=== PATIENT | female | born 1975 | race Caucasian/White ===

== ENCOUNTER 2017-06-19 17:00 | Emergency (ER) | payer OTHER ==
[2017-06-19 17:07] VITALS: BP 131/80; PULSE 66; RESP 17; TEMP 98.4; O2SAT 99
[2017-06-19] MEDS ORDERED: IBUPROFEN 600 MG TAB PO ONE (17:12)
--- NOTE | 2017-06-19 17:14 | EDPHY ---
H & P Stated Complaint: playing with son on trampoline inj r forearm HPI/ROS: CHIEF COMPLAINT: Right forearm pain, blunt trauma HISTORY OF PRESENT ILLNESS: Patient was playing with her son just prior to when she struck her right forearm on his [place]. She noted a sudden onset of pain over the mid shaft of the forearm. This is on the ulnar side. It radiates into the upper arm and arm pit. No numbness. Some tingling of the right small finger. No wrist drop. Significant pain to palpation. No lacerations or abrasions. No contusions. No trauma elsewhere. Worse with palpation and movement. Minimal improvement rest. No other associated complaints or modifying factors. PRIOR ORTHO INJURIES: None ESTABLISHED ORTHOPEDIST: None REVIEW OF SYSTEMS: Ten systems reviewed and are negative unless otherwise noted in the HPI EXAMINATION General Appearance: Alert, no distress Cardiovascular: Pulses normal throughout. Symmetric radial pulses 2+. Brisk cap refill Neurological: A&O, sensory symmetric, strength symmetric. No wrist drop. Good strength of the interossei. Skin: Warm and dry, no rash. No lacerations abrasions or contusions. Extremities: Tender palpation of the right forearm over the ulnar aspect midshaft. No deformity. No tenderness of the right hand, wrist or elbow. No tenderness of the right shoulder. Neurovascular intact distal to the injury Psychiatric: Mood and affect normal DIFFERENTIAL DIAGNOSES: Including but not limited to hematoma, fracture, sprain, contusion MDM: 5:10 p.m. Right forearm pain after blunt trauma. Neurovascular intact distally. No obvious deformity. No pain in the ipsilateral shoulder, wrist or elbow. X-ray of the forearm has been ordered. 5:25 p.m. X-ray does not reveal any acute findings as read by me. She does report some paresthesia but there is no numbness of the fingers. There is 2 point sensation intact in the ulnar distribution. The radial distribution intact with good strength and no wrist drop. Median distribution is also intact. Discharged home with symptomatic medications, elevation and ice instructions. Return here for any true anesthesia, wrist drop, difficulty moving the fingers. She is comfortable with this plan and discharged home in stable condition. ED Precautions: Worsening pain. Erythema, edema, cyanosis, pallor, paresthesia or anesthesia. SUPERVISION: This patient was independently evaluated without direct examination by the attending physician. Case was discussed with attending physician. Source: Patient Exam Limitations: No limitations - Personal History LMP (Females 10-55): IUD In Place Current Tetanus/Diphtheria Vaccine: Yes Tetanus Vaccine Date: 01/2011 - Medical/Surgical History Hx Asthma: No Hx Chronic Respiratory Disease: No Hx Diabetes: No Hx Cardiac Disease: No Hx Renal Disease: Yes Hx Cirrhosis: No Hx Alcoholism: No Hx HIV/AIDS: No Hx Splenectomy or Spleen Trauma: No Other PMH: hx: kidney stones, hypothyroidism, - Social History Smoking Status: Never smoked Constitutional: Initial Vital Signs Temperature (C) 98.4 F 06/19/17 17:04 Heart Rate 66 06/19/17 17:04 Respiratory Rate 17 06/19/17 17:04 Blood Pressure 131/80 H 06/19/17 17:04 O2 Sat (%) 99 06/19/17 17:04 O2 Delivery Mode Room Air Allergies/Adverse Reactions: gluten [Gluten] Allergy (Verified 06/19/17 17:03) Penicillins Allergy (Verified 06/19/17 17:03) Home Medications: Medication Instructions Recorded NK [No Known Home Meds] 06/19/17 Medical Decision Making - Data Points Medications Given: Discontinued Medications Ibuprofen (Motrin) 600 mg PO EDNOW ONE Stop: 06/19/17 17:13 Last Admin: 06/19/17 17:16 Dose: 600 mg Departure - Departure Disposition: Home, Routine, Self-Care Clinical Impression: Traumatic hematoma of right forearm Condition: Good Instructions: Contusion in Adults (ED), Hematoma (ED) Additional Instructions: 1. Ice and elevate the extremity 2. Ibuprofen 600-800 mg every 8 hours as needed 3. Follow up with Orthopedics for definitive care 4. Return to ER for worsening pain, numbness, tingling, wrist drop, cyanosis or pallor Referrals: TIN ANG [Primary Care Provider] - As per Instructions Shalom Chambers MD [Medical Doctor] - As per Instructions
== END 2017-06-19 17:35 | disposition home or self-care (01) ==
DX: S50.11XA Contusion of right forearm, initial encounter (principal); W22.8XXA Striking against or struck by other objects, initial encounter; Y99.8 Other external cause status; Y93.44 Activity, trampolining

== ENCOUNTER → 2018-11-25 | Outpatient (CLI) | payer OTHER | LOC: FIMAGING 14:19 ==

== ENCOUNTER → 2018-12-05 | Outpatient (CLI) | payer OTHER | LOC: BRMIMAGING 09:09 | PROVIDERS: ATTEND Emergency Medicine | DX: Z12.31 Encounter for screening mammogram for malignant neoplasm of breast (principal) ==